=== PATIENT | female | born 1950 | race Caucasian/White ===

== ENCOUNTER → 2017-03-31 | Outpatient (CLI) | payer MEDICARE, BC ==
[~2017-03-31] MED LIST: ASPIRIN81 M2 PO; CERTAGEN PO; GLUCOSAMINE500 M1 PO; LEVOTHYROXINE100 MCG PO; PANTOPRAZOLE SO40 MG PO; ZYRTEC10 M1 PO
--- NOTE | ~2017-03-31 | US77 ---
[facility] A Service of [facility] & [facility] RADIOLOGY TEXT RESULTS PATIENT: HAILEE BLANK LOCATION: [facility] : 46 UNIT #: [id number] AGE: [address]: ODNALDO SARAVIA SEX: F ORDER DR: [id number] [facility] [address] [place], [place] [address] [id number] MR#: [id number] Acc #: [id number] NAME: HAILEE BLANK : 1950 SEX: F STUDY DATE/TIME: 03/31/2017 10:42 UNIT: [facility] ROOM: STUDY DESCRIPTION: US Kidney Bilateral Complete Attending Physician: Montez Saravia M.D. Referring Physician: Montez Saravia M.D. Ordering Physician: Montez Saravia M.D. Primary Care Physician: Soy Lal M.D. MEDICAL IMAGING REPORT This report is preliminary unless electronic signature is present EXAM Renal ultrasound INDICATIONS Acute renal failure. BUN of 11, creatinine 1.32, GFR 41. PROCEDURE Hilliard-scale and Doppler imaging kidneys and bladder. COMPARISON None FINDINGS Right kidney measures 12.7 cm. Cortical thickness 1.8 cm. The left kidney measures 10.9 cm. Cortical thickness 1.9 cm. No hydronephrosis or renal mass. Unremarkable bladder. IMPRESSION Negative renal ultrasound. Dictated by... Carlos Dhaliwal M.D. THIS IS AN ELECTRONICALLY VERIFIED REPORT Carlos Dhaliwal M.D. at 04/01/2017 2:29 PM EED/psc TD: 03/31/2017 20:57 JOB #: [id number] MEDICAL IMAGING REPORT Page 1 of 1 COPY
== END | disposition home or self-care (01) ==
LOC: CWCC 10:01
DX: N17.9 Acute kidney failure, unspecified (principal)
CPT/HCPCS: 76770